=== PATIENT | male | born 1945 | race Caucasian/White ===

== ENCOUNTER 2017-09-04 04:04 | Inpatient (IN) | payer OTHER, MEDICARE ==
[~2017-09-04] VITALS: Ht 172.7 cm; Wt 85.3 kg
[~2017-09-04 04:04] MED LIST: ATIVAN0.5 M1; MECLIZINE HCL25 MG PO; MULTIVITAMINS1 EAC9 PO; OMEGA 3-6-9 11200 MG; PROTONIX20 M1 PO; VITAMIN C1000 M4
--- NOTE | 2017-09-04 14:02 | Admission Core Measures ---
Acute Coronary Syndrome (CM) ACS Core Measures Acute Coronary Syndrome Diagnosis No Congestive Heart Failure (NEW) CHF Core Measures Congestive Heart Failure Diagnosis No Cerebrovascular Accident (NEW) CVA Core Measures CVA/TIA Diagnosis No Venous Thromboembolism VTE Core Shanda (View Protocol) VTE Risk Factors Surgery No Mechanical VTE Prophylaxis d/t N/A MechProphylax Ordered No VTE Pharm Prophylaxis d/t NA PharmProphylax ordered Problem List As ranked by this Provider includes Assessment & Plan 1. Unilateral primary osteoarthritis, right hip HOME MEDS Home Med List Meclizine HCl 25 MG TABLET 1 TAB PO TIDPRN VERTIGO (Reported) Multiple Vitamin (Multivitamins) 1 EACH TABLET 1 TAB PO DAILY SUPPLEMENT ( Reported) Pantoprazole Sodium (Protonix) 20 MG TABLET.DR 1 TAB PO DAILY GI (Reported)
[2017-09-04] MEDS ORDERED: DILAUDID2 M1 PO (14:04)
[2017-09-04] MEDS ORDERED: MIRALAX17 G1 PO (14:04)
[2017-09-04] MEDS ORDERED: ASPIRIN EC325 M2 PO (14:04)
[2017-09-04] MEDS ORDERED: COLACE100 M1 PO (14:04)
--- NOTE | 2017-09-04 14:07 | Patient Discharge Instructions ---
Discharge Instructions General Discharge Information You were seen/treated for: Right hip pain related to unilateral primary osteoarthritis You had these procedures: Right total hip replacement Watch for these problems: Increasing pain despite the use of pain medication Increasing redness, warmth or swelling Drainage of any type from incision Inability to bear weight on operative leg Persistent nausea and vomiting Fever greater than 101.5 degrees Do not soak the wound: Yes No bath, but you may shower: Yes Other wound care: Please keep wound clean and dry. No ointments or lotions of any type on or near incision at any time. No exceptions. Your dressing will be changed by your nurse on the second day after your surgery. Daily dry dressing changes are recommended each day thereafter. Do not soak your wound in a bath at any time until otherwise indicated by your surgeon. You may shower, please dry wound immediately after shower with a clean towel. Special Instructions: Aspirin: You are taking this medication to help prevent blood clot formation. Please take with food to protect your stomach lining. Please take as directed. Constipation: Pain medication can cause constipation. Dr. Guillen has recommended that you take Colace and miralax each day. You may discontinue this medication if you develop loose stool or diarrhea. If you wish to continue this medication, it is available over the counter. If you are unable to move your bowels after several days, if you are unable to pass gas and are developing bloating, nausea, or vomiting as a result, please contact your doctor. Diet Continue normal diet: Yes Recommended Diet: Regular Activity Full Activity/No Limits: No Activity Self Limited: Yes Pounds, do NOT lift more than: 10 Activity Limited to: Weight bear as tolerated Acute Coronary Syndrome Inclusion Criteria At DC or during hospital stay patient has or had the following: ACS DIAGNOSIS No Discharge Core Measures Meds if any: Prescribed or Continued at Discharge Meds if any: NOT Prescribed or Continued at Discharge Congestive Heart Failure Inclusion Criteria At DC or during hospital stay patient has or had the following: CHF DIAGNOSIS No Discharge Core Measures Meds if any: Prescribed or Continued at Discharge Meds if any: NOT Prescribed or Continued at Discharge Cerebrovascular accident Inclusion Criteria At DC or during hospital stay patient has or had the following: CVA/TIA Diagnosis No Discharge Core Measures Meds if any: Prescribed or Continued at Discharge Meds if any: NOT Prescribed or Continued at Discharge Venous thromboembolism Inclusion Criteria VTE Diagnosis No VTE Type NONE VTE Confirmed by (Test) NONE Discharge Core Measures - Per Current guidelines, there needs to be overlap - treatment for the first 5 days of Warfarin therapy. - If discharged on Warfarin prior to 5 days of - overlap therapy, the patient will need to be - assessed for post discharge needs including - *Post discharge parental anticoagulation - *Warfarin and/or parental anticoagulation education - *Follow up date to check INR post discharge At least 5 days overlap therapy as Inpatient No Meds if any: Prescribed or Continued at Discharge Note: Overlap Therapy is Warfarin and Anticoagulant Meds if any: NOT Prescribed or Continued at Discharge
--- NOTE | 2017-09-04 14:10 | Surgical Discharge Summary ---
Visit Information Visit Dates Admission Date: 09/04/17 Discharge Date: 09/06/17 History of Present Illness Chief Complaint: Right hip pain related to unilateral primary osteoarthritis Surgical History Pertinent Surgical History: non-contributory Review of Systems: See H&P Hospital Course Course Attending Physician: Kevin Guillen MD Primary Care Physician: Unknown Hospital Course: Patient was admitted to the hospital for an elective total joint replacement. The procedure was tolerated well and patient was transferred to a general surgical floor. Diet was advanced and tolerated, and the patient voided spontaneously. The patient was evaluated and treated by physical therapy. At the time of hospital discharge, the vital signs were stable, neurovascular status was intact, and pain was controlled with the use of oral pain medications. Complications: None Allergies: Coded Allergies: adhesive (WELTS 08/29/17) Disposition Summary Disposition Principal Diagnosis: Right hip unilateral primary osteoarthritis Additional Diagnosis: None Discharge Disposition: home health services Discharge Instructions General Discharge Information Code Status: Full Code Patient's Diet: Regular, advance as tolerated Patient's Activity: WBAT Follow-Up Instructions/Appts: Follow up with Dr. Guillen in 6 weeks from date of surgery Medications at Discharge Discharge Medications: Continue taking these medications: Pantoprazole Sodium (Protonix) 20 MG TABLET.DR 1 Tablet ORAL DAILY Lorazepam (Ativan) 0.5 MG TABLET Meclizine HCl (Meclizine HCl) 25 MG TABLET 1 Tablet ORAL THREE TIMES A DAY NEEDED Ascorbic Acid (Vitamin C) 1,000 MG TABLET Multiple Vitamin (Multivitamins) 1 EACH TABLET 1 Tablet ORAL DAILY Fish Oil/Borage/Flax/Om3,6,9#1 ([place] 3-6-9 1,200 MG Softgel) 1,200 MG CAPSULE Start taking the following new medications: Aspirin (Ecotrin*) 325 MG TABLET.DR 1 Tablet ORAL TWICE DAILY Qty = 60 No Refills Hydromorphone HCl (Dilaudid) 2 MG TABLET 1-2 Tablet ORAL EVERY 4-6 HOURS NEEDED as needed for PAIN Qty = 36 No Refills Docusate Sodium (Colace) 100 MG CAPSULE 1 Capsule ORAL TWICE DAILY Qty = 14 No Refills Instructions: DISCONTINUE USE IF YOU DEVELOP LOOSE STOOL OR DIARRHEA Polyethylene Glycol 3350 (Miralax) 17 GRAM POWD.PACK 1 Packet ORAL DAILY Qty = 7 No Refills Instructions: dissolve in water, DISCONTINUE USE IF YOU DEVELOP LOOSE STOOL OR DIARRHEA
--- NOTE | 2017-09-04 15:22 | RADIOLOGY REPORT ---
EXAMINATION: XR HIP, RIGHT CLINICAL INFORMATION: Right hip replacement. COMPARISON: None TECHNIQUE: AP and lateral views of the right hip. FINDINGS: A right hip prosthesis is in place. There is expected subcutaneous gas. No acute fractures are identified. IMPRESSION: Expected appearance following right hip prosthesis placement.
[2017-09-04 16:00] VITALS: BP 122/50
--- NOTE | 2017-09-04 16:30 | Operative Report ---
Operative/Inv Procedure Report Surgery Date: 09/04/17 Name of Procedure: Right total hip replacement Pre-Operative Diagnosis: Primary right hip DJD Post-Operative Diagnosis: Same Estimated Blood Loss: 350 Surgeon/Sander Machine: Wilmer CHEEK,Kevin Reese Anesthesia: block Operative/Procedure Note Note: Description of Procedure: The patient was taken to the operating room and positively identified. After induction of spinal anesthesia and administration of appropriate pre-operative antibiotics, the patient was positioned supine on the operating room table and all bony prominences were well padded. After performing a surgical timeout, the right lower extremity was prepped and draped in the usual sterile fashion. A direct anterior approach was made to the right hip. The incision was carried sharply through superficial soft tissues to the level of the fascia. Meticulous hemostasis was maintained with Bovie electocautery. The fascia over the tensor fascia erlin muscle was opened sharply and the interval between the TFL and the sartorius was entered bluntly taking care to stay lateral to the lateral femoral cutaneous nerve. Retractors were placed around the femoral neck and the pericapsular fat was identified. The ascending branches of the lateral femoral circumflex vessels were identified and carefully coagulated. The pericapsular fat and anterior capsule were then resected. A napkin ring osteotomy was performed and the femoral head was removed without difficulty. Attention was then turned to the acetabulum. After appropriate placement of retractors, the acetabulum was exposed. Soft tissue was cleaned from the acetabular margin and notch. Overhanging osteophytes were removed and the teardrop was exposed. The acetabulum was then sequentially reamed to accept a 56 mm Ashley Tritanium hemispherical solid shell. This was impacted into place in the appropriate position and fitted with a 36 mm Trident X3 zero degree polyethylene insert. Attention was then turned to the femur. After performing the appropriate ligament releases, the proximal femur was exposed. It was then sequentially broached to accept a size 7 Ashley secure fit advanced 127 neck angle stem. This was trialed for leg length and stability. A single Dall-Miles cable was placed proximal to the lesser trochanter prophylactically. The trial component was removed and the final component was impacted into place. The trunnion was carefully cleaned and fit with a 36 mm, +0 Biolox delta ceramic femoral head. The hip was reduced and put through a full range of motion and found to be stable. The articular space was then irrigated with sterile saline. The periarticular soft tissues were infilitrated with Marcaine. The fascial layer was closed with interrupted #1 vicryl suture and the skin was re-approximated with interrupted 2 -0 vicryl. The skin was closed with a running 3-0 V-Lock suture. Steri-strips and a sterile dressing were applied. The patient was awakened and taken to the recovery room in satisfactory condition.
--- NOTE | 2017-09-04 17:12 | PN- Orthopedic ---
Subjective Subjective: POSTOP CHECK walked with pt, felt ok. due to void postop. no nausea, no vomiting. hungry, awaiting meal. pain well controlled. no cp/sob. Objective Vital Signs and I&Os Vital Signs Date Time Temp Pulse Resp B/P B/P Pulse O2 O2 Flow FiO2 Mean Ox Delivery Rate 09/04 1600 97.9 62 20 122/50 97 Room Air Physical Exam: GEN- NAD CARD- S1S2 RRR PULM- CTAB ABD- soft nt EXT- RLE: hip dressing CDI, ttp at incision, ice pack in place, gross motor/ sensory intact, palp DP. BLE: calves soft nt, alps on Assessment/Plan Assessment/Plan A- POD0 sp R SOULEYMANE, stable, with appropriate postop pain P- - reg diet as tolerated - HL once voids - WBAT, PT, OOB - ALPS, ASA BID - prn pain meds - home meds - DC planning -will dw attending Core Measures Venous Thromboembolism VTE Risk Factors Surgery No Mechanical VTE Prophylaxis d/t N/A MechProphylax Ordered No VTE Pharm Prophylaxis d/t NA PharmProphylax ordered
[2017-09-04 20:26] VITALS: BP 110/52
[2017-09-04 22:30] VITALS: BP 110/60
[2017-09-05 02:30] VITALS: BP 108/64
[2017-09-05 06:24] VITALS: BP 110/60
--- NOTE | 2017-09-05 07:41 | PN- Orthopedic ---
Subjective Subjective: Awake, alert OOB in chair Ambulated in room without difficulty - has not been cleared for discharge by PT Complaining of incisional pain - does not want to take pain meds - only had IV tylenol so far Denies nausea, tolerating diet, +void Objective Vital Signs and I&Os Vital Signs Date Time Temp Pulse Resp B/P B/P Pulse O2 O2 Flow FiO2 Mean Ox Delivery Rate 09/05 623 98.1 64 16 110/60 96 Room Air 09/05 0230 98.4 64 16 108/64 94 Room Air 09/04 2230 98.2 62 20 110/60 97 Room Air 09/04 2025 98.6 80 20 110/52 98 Room Air 09/04 1600 97.9 62 20 122/50 97 Room Air Intake & Output 09/05 0800 09/05 0000 09/04 1600 09/04 0800 09/04 0000 09/03 1600 Intake Total 900 1270 Output Total 600 1800 Balance 300 -530 Intake, IV 600 550 Intake, Oral 300 720 Output, Urine 600 1800 Patient 188 lb Weight Weight Reported by Patient Measurement Method Physical Exam: afebrile, VSS General: alert and oriented times three Chest: clear anteriorly bilaterally, RRR Abd: soft, good bs Ext: warm, normosensate, good 5/5 FRED BLE, no edema, no calf tenderness Wd: dressed, dry, ice pack in place Assessment/Plan Assessment/Plan 71yo male s/p R THR pod 1 Pain mgmt - discussed need for pain management with patient, he would like to try MS contin - will add to regimen, encouraged him to ask for dilaudid if needed, continue toradol as needed PT - WBAT dc planning asa 325mg po bid for dvt ppx, ALPS Core Measures Venous Thromboembolism VTE Risk Factors Surgery No Mechanical VTE Prophylaxis d/t N/A MechProphylax Ordered No VTE Pharm Prophylaxis d/t NA PharmProphylax ordered
[2017-09-05 09:24] LABS: ABSOLUTE BASOPHIL COUNT 0 /CUMM (0.0-0.2); ABSOLUTE EOSINOPHIL COUNT 0.1 /CUMM (0.0-0.7); ABSOLUTE GRANULOCYTE CT 7.9 /CUMM (1.4-6.5); ABSOLUTE LYMPH COUNT 1.6 /CUMM (1.2-3.4); ABSOLUTE MONOCYTE COUNT 0.7 /CUMM (0.10-0.60); BASOPHIL % 0.4 % (0.0-2.0); EOSINOPHIL % 0.5 % (0-5); GRANULOCYTE % 77.4 % (42.2-75.2); HEMATOCRIT 32.8 % (42-52); MEAN CORPUSCULAR HGB 29.6 PG (27.0-31.0); MEAN CORPUSCULAR HGB CONC 33.7 G/DL (33.0-37.0); MEAN PLATELET VOLUME 7.5 FL (7.4-10.4); PLATELET COUNT 261 /CUMM (130-400); RBC DISTRIBUTION WIDTH 13.8 % (11.5-14.5); RED BLOOD CELL CT 3.72 /CUMM (4.70-6.10); WHITE BLOOD CELL COUNT 10.2 /CUMM (4.8-10.8)
[2017-09-05 11:41] VITALS: BP 118/70
[2017-09-05 15:36] VITALS: BP 116/68
[2017-09-05 19:30] VITALS: BP 122/68
[2017-09-06 00:14] VITALS: BP 118/76
[2017-09-06 04:18] VITALS: BP 122/74
--- NOTE | 2017-09-06 08:23 | PN- Orthopedic ---
Subjective Subjective: Patient complaining of pain and inability to ambulate. Denies chest pain, shortness of breath and difficulty breathing. Denies nausea and vomitting. Has been voiding. Has yet to move bowels. Objective Vital Signs and I&Os Vital Signs Date Time Temp Pulse Resp B/P B/P Pulse O2 O2 Flow FiO2 Mean Ox Delivery Rate 09/068 98.1 75 20 122/74 94 Room Air 09/06 0014 98.3 82 20 118/76 93 Room Air 09/05 1930 99.6 78 20 122/68 91 09/05 1536 97.5 71 16 116/68 96 Room Air 09/05 1141 97.4 79 16 118/70 100 Room Air Intake & Output 09/06 1600 09/06 0800 09/06 0000 09/05 1600 09/05 0800 09/05 0000 Intake Total 120 150 715 035 0954 Output Total 598 112 4955 Balance -330 150 300 300 -530 Intake, IV 10 300 600 550 Intake, Oral 120 140 300 720 Output, Urine 151 978 0021 Patient 188 lb Weight Weight Reported by Patient Measurement Method Physical Exam: General: ALert and oriented x3, no acute distress Cardiac: RRR, s1s2 Pulm: C T A bilaterally ABD: Non-tender, non-distended Extremtieis: Moves all extremities, distal sensation grossly intact. SKin warm and well perfused. DP pulses palpable bilaterally. Bilateral calves soft and non-tender. Dressing removed. Incision clean, dry and intact. no drainage. Some lakia-incisional bruising. New dresssing applied. Thigh compartment soft, some tightness noted distally to quadriceps. Assessment/Plan Assessment/Plan This is a 71 year old male, POD 2 s/p R THR -Daily dry dressing changes -Add valium for quadriceps, heat recommended -Continue current pain regimen -Give toradol now -Continue diet as toelrated -Continue asa 325 bid for dvt ppx -Continue oob, wbat -Continue with PT Anticipate discharge to home with [facility] if mobility improves Will d/w Dr. Guillen Core Measures Venous Thromboembolism VTE Risk Factors Surgery No Mechanical VTE Prophylaxis d/t N/A MechProphylax Ordered No VTE Pharm Prophylaxis d/t NA PharmProphylax ordered
[2017-09-06 10:14] VITALS: BP 112/64
[2017-09-06] MEDS ORDERED: MORPHINE SULFAT15 M3 PO (10:47)
== END 2017-09-06 13:43 | disposition home health service (06) | DRG 470 ==
LOC: 2NA 04:04 → SDA 04:04 → ENRESERV 14:40 → ENTRNSPT 15:39 → EDTRNSPTSTS 15:50 → 2NB 15:58 → CMPTRNSPT 16:28 → 2NA 21:43 → ENPENDDIS 09-06 10:50 → ENTRNSPT 09-06 13:33 → EDTRNSPT 09-06 13:38 → EDTRNSPTSTS 09-06 13:38 → 2NA 09-06 13:43 → CMPTRNSPT 09-06 13:52
PROVIDERS: Nurse Practitioner
PROC: 0SR904A Replacement of Right Hip Joint with Ceramic on Polyethylene Synthetic Substitute, Uncemented, Open Approach (ICD-10-PCS; principal; 2017-09-04)
DX: M16.11 Unilateral primary osteoarthritis, right hip (principal); N40.0 Benign prostatic hyperplasia without lower urinary tract symptoms; Z85.048 Personal history of other malignant neoplasm of rectum, rectosigmoid junction, and anus
CPT/HCPCS: 2NAP; 36415; 73502-RT; 82436; 97110-GO; 97116-GO; 97161-GP; 97530-GO; J0131; J0690; J0735; J1100; J2405; J2550; J3490